=== PATIENT | female | born 1975 | race Caucasian/White ===

== ENCOUNTER → 2022-08-31 12:13 | Outpatient (CLI) | payer OTHER, SELFPAY ==
--- NOTE | 2022-08-31 | DI.ECHO.S_ITS ---
[facility]---------+ [facility] +---------+ : : [address] : [address] : : : : [id number] : : : : Phone: [phone]---------+ Echocardiogram Report + + :Name: NOREEN MARTIN Study Date: 08/31/2022 Height: 66 in : :[facility] ReadingLocation: Weight: 160 lb : : Gender: Female BSA: 1.8 m2 : :: 1975 Age: 46 yrs BP: 114/81 mmHg: :Reason For Study: DYSPNEA HR: 70 : :Ordering Physician: DOMINGO, : :HERMELINDA Wilson Performed By: BABATUNDE HYATT : :Referring: HERMELINDA LANE : + + Interpretation Summary The ejection fraction is estimated to be 55-60%. Diastolic parameters suggest probable normal left ventricular diastolic function and normal filling pressures. The right ventricle is normal in size and function. Pulmonary artery pressures cannot be estimated because of the lack of a measurable TR jet velocity. Both atria are normal in size. There is mild mitral regurgitation. No significant valvular abnormality. Procedure: A two-dimensional transthoracic echocardiogram with color flow and Doppler was performed. The study quality was technically adequate. There is no prior echocardiogram noted for this patient. The patient was in normal sinus rhythm during the exam. Left Ventricle: The left ventricle is normal in size and wall thickness. Left ventricular systolic function is normal. The ejection fraction is estimated to be 55-60%. There are no obvious focal wall motion abnormalities noted but poor endocardial definition reduces the sensitivity for the detection of such. Diastolic parameters suggest probable normal left ventricular diastolic function and normal filling pressures. Right Ventricle: The right ventricle is normal in size and function. Atria: Both atria are normal in size. There is no Doppler evidence for an interatrial shunt. Mitral Valve: The mitral valve is normal in structure and function. There is mild mitral regurgitation. Aortic Valve: The aortic valve is trileaflet. The aortic valve opens well. There is no aortic valve stenosis. There is trace aortic regurgitation. Tricuspid Valve: The tricuspid valve is normal in structure and function. No tricuspid regurgitation. Pulmonary artery pressures cannot be estimated because of the lack of a measurable TR jet velocity. Pulmonic Valve: The pulmonic valve is not well visualized. There is no pulmonic valvular regurgitation. Great Vessels: The aortic root is normal size. The ascending aorta could not be visualized. The IVC is of normal diameter and collapses greater than 50% with a sniff. This suggests a low right atrial pressure of 3 mm Hg. Pericardium/ Pleura There is no pericardial effusion. There is no pleural effusion. MMode/2D Measurements & Calculations LVIDd: 4.5 cm LVOT diam: 1.8 cm LVIDs: 3.0 cm Ao root diam: 2.8 cm FS: 33.3 % IVSd: 0.70 cm LVPWd: 0.80 cm LV landon. diameter/BSA (cm/m^2): 2.5 LV sys. diameter/BSA (cm/m^2): 1.6 LA A2 area: 19.3 cm2 RA long axis: 4.3 cm LA A4 area: 11.6 cm2 LA length (vol): 5.3 cm LA vol: 36.0 ml LA vol index: 19.8 ml/m2 RVD1 (basal): 3.7 cm LVLs ap4: 5.8 cm LVLd ap2: 7.7 cm TAPSE_phl: 2.7 cm LVLs ap2: 6.4 cm Doppler Measurements & Calculations Ao V2 max: 138.0 cm/sec LVOT Max Sam: 119.0 cm/sec Ao V2 mean: 103.0 cm/sec LV V1 max P.7 mmHg Ao max P.0 mmHg LV V1 VTI: 26.1 cm Ao mean P.0 mmHg TIFFANI(I,D): 2.3 cm2 Ao V2 VTI: 28.4 cm TIFFANI(V,D): 2.2 cm2 sev ratio: 0.92 TIFFANI indexed to BSA (cm^2/m^2): 1.3 MV E max sam: 92.5 cm/sec PA V2 max: 93.3 cm/sec MV A max sam: 64.3 cm/sec PA V2 mean: 65.4 cm/sec MV E/A: 1.4 PA mean P.0 mmHg Med Peak E' Sam: 12.6 cm/sec PA pr(Accel): 9.3 mmHg E/E' med: 7.3 Lat Peak E' Sam: 15.7 cm/sec E/E' lat: 5.9 E/e' average: 6.6 MV dec time: 0.24 sec SV(LVOT): 66.4 ml AV VR_phl: 0.86 TIFFANI(VTI)/BSA_phl: 1.3 MV P1/2t-pr_phl: 70.0 msec Reading Physician:PM
== END ==
PROVIDERS: PCP Physician Assistant; Referring Provider Physician Assistant; Visit Provider Physician Assistant
DX: I34.1 Nonrheumatic mitral (valve) prolapse (principal); R06.09 Other forms of dyspnea; R42 Dizziness and giddiness
CPT/HCPCS: 93306